=== PATIENT | male | born 1990 | race African-American/Black ===

== ENCOUNTER 2019-12-20 12:23 | Inpatient (IN) | payer MEDICAID ==
[~2019-12-20] VITALS: Ht 185.4 cm; Wt 68.5 kg
[~2019-12-20 12:23] MED LIST: INSLIS SUBCUT; LANTUSUD SUBCUT; NIFE-32 PO
[2019-12-20] MEDS ORDERED: SODIUM CHLORIDE 0.9% 1,000 ML IV ONE (12:38)
[2019-12-20] MEDS ORDERED: MORPHINE SULFATE 4 MG/ML CPJ (NOT FOR IM USE) IV STA (12:38)
[2019-12-20] MEDS ORDERED: ONDANSETRON HCL 4MG/2ML INJ IV STA (12:38)
[2019-12-20] MEDS ORDERED: PANTOPRAZOLE SODIUM 40 MG/VIAL IV STA (12:38)
[2019-12-20] MEDS ORDERED: INSULIN REGULAR (DRIP) 100 UNITS in SODIUM CHLORIDE 0.9% 99 ML IV ONE (12:45)
[2019-12-20] MEDS ORDERED: INSULIN REGULAR (DRIP) 100 UNITS in SODIUM CHLORIDE 0.9% 99 ML IV NR (13:30)
[2019-12-20 13:33] LABS: BASOPHILS % 0.9 % (0.0-2.0); EOSINOPHILS % 0.6 % (0.0-5.0); HEMATOCRIT. 46.9 % (42.0-52.0); HEMOGLOBIN. 15.9 g/dL (14.0-18.0); LYMPHOCYTES % 13.4 % (20.0-50.0); MEAN CORPUSCULAR HEMOGLOBIN 29.6 pg (28.0-32.0); MEAN CORPUSCULAR VOLUME 87.2 fL (80.0-94.0); MEAN PLATELET VOLUME 10.1 fl (7.4-10.4); MONOCYTES % 3.8 % (2.0-8.0); NEUTROPHILS % 81.3 % (40.0-76.0); PLATELET 329 x1000/uL (130-400); RED BLOOD CELL COUNT 5.38 mill/uL (4.7-6.1); RED CELL DISTRIBUTION WIDTH 12.6 % (11.6-14.6)
[2019-12-20 13:44] LABS: BG BASE EXCESS 0.5 mmol/L (-2.0-2.0); BG DEOXYHEMOGLOBIN 1.3 % (0.0-5.0); BG FRACTION INSPIRED OXYGEN 21; BG HCO3 ACT 21.3 mmol/L (22.0-26.0); BG METHEMOGLOBIN 0.3 % (0.0-1.5); BG OXYGEN SATURATION 98.7 % (92.0-98.5); BG OXYHEMOGLOBIN 97.4 % (94.0-97.0); BG PCO2 25.6 mmHg (35.0-45.0); BG PH 7.538 (7.350-7.450); BG PO2 127.1 mmHg (75.0-100.0); BG SAMPLE SITE RIGHT RADIAL; BG TOTAL HEMOGLOBIN 15.8 g/dL (12.0-18.0); BG VENT MODE ROOM AIR
[2019-12-20 13:45] LABS: PROTHROMBIN TIME 10.4 sec (9.6-11.0)
[2019-12-20 14:27] LABS: CHLORIDE 97 mEq/L (98-107)
[2019-12-20] MEDS ORDERED: INSULIN REGULAR (HUMULIN R) 300UNITS/3ML IV ONE (14:45)
[2019-12-20 14:56] LABS: BETA HYDROXYBUTYRATE 1.9 mMol/L (0.0-0.3)
[2019-12-20 15:17] LABS: ETHANOL BLOOD < 10 mg/dL
[2019-12-20] MEDS: AMLODIPINE 5MG TABLET PO SCH (17:15)
[2019-12-20] MEDS ORDERED: DEXT 5%/0.9% NACL 1,000 ML IV ONE (18:30)
[2019-12-20 20:00] VITALS: BP 162/102
[2019-12-20] MEDS ORDERED: IPRATROPIUM/ALBUTEROL 0.5-3(2.5)MG/3ML NEB HHN PRN (20:30)
[2019-12-20] MEDS ORDERED: ACETAMINOPHEN 325MG TABLET PO PRN (20:30)
[2019-12-20] MEDS ORDERED: DOCUSATE SODIUM 100MG CAPSULE PO PRN (20:30)
[2019-12-20] MEDS ORDERED: LORAZEPAM 0.5MG TABLET PO PRN (20:30)
[2019-12-20] MEDS ORDERED: HYDROCODONE/ACETAMINOPHEN 5/325MG TABLET PO PRN (20:30)
[2019-12-20 21:00] VITALS: BP 152/102
[2019-12-20] MEDS ORDERED: DEXTROSE 50% WATER 50ML SYRINGE IV PRN (21:00)
[2019-12-20] MEDS: INSULIN LISPRO 100 UNITS/ML SUBCUT SCH (21:00)
[2019-12-20] MEDS ORDERED: INSULIN LISPRO 100 UNITS/ML SUBCUT SCH (21:00)
[2019-12-20] MEDS: BLOOD SUGAR DIAGNOSTIC STRIP TEST SCH (21:20)
[2019-12-20] MEDS: CLONIDINE 0.1MG TABLET PO PRN (21:27)
[2019-12-20] MEDS: ONDANSETRON HCL 4MG/2ML INJ IV PRN (21:27)
[2019-12-20] MEDS: SODIUM CHLORIDE 0.9% 1,000 ML IV SCH (21:47)
[2019-12-21] VITALS: BP 151/108
[2019-12-21] MEDS: INSULIN GLARGINE UD 100 UNITS/ML SYR SUBCUT SCH ×3 (01:53→22:00)
[2019-12-21] MEDS: ONDANSETRON HCL 4MG/2ML INJ IV PRN ×3 (03:31→16:23)
[2019-12-21 04:00] VITALS: BP 185/122
[2019-12-21] MEDS: CLONIDINE 0.1MG TABLET PO PRN (04:57)
[2019-12-21 05:55] VITALS: BP 116/72
[2019-12-21] MEDS: INSULIN LISPRO 100 UNITS/ML SUBCUT SCH ×4 (06:25→21:00)
[2019-12-21] MEDS: SODIUM CHLORIDE 0.9% 1,000 ML IV SCH (06:26)
[2019-12-21] MEDS: BLOOD SUGAR DIAGNOSTIC STRIP TEST SCH ×4 (06:26→21:00)
[2019-12-21 08:00] VITALS: BP 125/73
[2019-12-21 09:06] LABS: BASOPHILS % 0.4 % (0.0-2.0); EOSINOPHILS % 0.1 % (0.0-5.0); HEMATOCRIT. 41.2 % (42.0-52.0); HEMOGLOBIN. 14.3 g/dL (14.0-18.0); LYMPHOCYTES % 11.1 % (20.0-50.0); MEAN CORPUSCULAR HEMOGLOBIN 30.1 pg (28.0-32.0); MEAN CORPUSCULAR VOLUME 86.8 fL (80.0-94.0); MEAN PLATELET VOLUME 9.1 fl (7.4-10.4); MONOCYTES % 7.1 % (2.0-8.0); NEUTROPHILS % 81.3 % (40.0-76.0); PLATELET 300 x1000/uL (130-400); RED BLOOD CELL COUNT 4.75 mill/uL (4.7-6.1); RED CELL DISTRIBUTION WIDTH 12.8 % (11.6-14.6)
[2019-12-21] MEDS: AMLODIPINE 5MG TABLET PO SCH (09:20)
[2019-12-21] MEDS ORDERED: LABETALOL 5MG/ML SYR 20 MG/4 ML SYRINGE IV PRN (09:30)
[2019-12-21] MEDS ORDERED: SODIUM CHLORIDE 0.9% 1,000 ML IV SCH (09:45)
[2019-12-21 12:00] VITALS: BP 160/90
[2019-12-21] MEDS: METOCLOPRAMIDE HCL 10MG/2ML VIAL IV SCH ×2 (12:00→18:10)
[2019-12-21] MEDS: PANTOPRAZOLE SODIUM 40 MG/VIAL IV SCH (12:00)
[2019-12-21] MEDS: LACTATED RINGERS 1,000 ML IV SCH ×2 (14:14→18:10)
[2019-12-21] MEDS: MORPHINE SULFATE 2 MG/ML CPJ (NOT FOR IM USE) IV PRN (16:25)
[2019-12-21 20:25] VITALS: BP 150/96
[2019-12-22] MEDS: METOCLOPRAMIDE HCL 10MG/2ML VIAL IV SCH ×4 (00:58→18:00)
[2019-12-22] MEDS: MORPHINE SULFATE 2 MG/ML CPJ (NOT FOR IM USE) IV PRN ×3 (01:09→18:22)
[2019-12-22] MEDS: LACTATED RINGERS 1,000 ML IV SCH ×3 (01:10→22:06)
[2019-12-22] MEDS: INSULIN LISPRO 100 UNITS/ML SUBCUT SCH ×4 (07:27→23:00)
[2019-12-22] MEDS: BLOOD SUGAR DIAGNOSTIC STRIP TEST SCH ×4 (07:28→21:00)
[2019-12-22 08:00] VITALS: BP 184/120
[2019-12-22] MEDS: PANTOPRAZOLE SODIUM 40 MG/VIAL IV SCH (08:35)
[2019-12-22] MEDS: NIFEDIPINE XL 60MG TAB PO SCH (08:35)
[2019-12-22] MEDS: ONDANSETRON HCL 4MG/2ML INJ IV PRN ×2 (08:35→17:11)
[2019-12-22 09:15] VITALS: BP 150/97
[2019-12-22] MEDS: INSULIN GLARGINE UD 100 UNITS/ML SYR SUBCUT SCH ×2 (10:00→23:34)
[2019-12-22 20:00] VITALS: BP 157/113
[2019-12-22] MEDS: CLONIDINE 0.1MG TABLET PO PRN (20:50)
[2019-12-23] MEDS: LACTATED RINGERS 1,000 ML IV SCH ×2 (01:45→17:45)
[2019-12-23] MEDS: METOCLOPRAMIDE HCL 10MG/2ML VIAL IV SCH ×5 (06:06→23:52)
[2019-12-23] MEDS: BLOOD SUGAR DIAGNOSTIC STRIP TEST SCH ×4 (07:03→20:52)
[2019-12-23] MEDS: INSULIN LISPRO 100 UNITS/ML SUBCUT SCH ×4 (07:08→20:52)
[2019-12-23] MEDS: FAMOTIDINE 20MG/2ML VIAL IV SCH ×2 (09:00→20:53)
[2019-12-23] MEDS: NIFEDIPINE XL 60MG TAB PO SCH (09:00)
[2019-12-23] MEDS: INSULIN GLARGINE UD 100 UNITS/ML SYR SUBCUT SCH ×2 (10:00→23:50)
[2019-12-23] MEDS: ONDANSETRON HCL 4MG/2ML INJ IV PRN (13:30)
[2019-12-23] MEDS: MORPHINE SULFATE 2 MG/ML CPJ (NOT FOR IM USE) IV PRN ×2 (13:50→18:40)
[2019-12-23] MEDS ORDERED: HYDRALAZINE 10 MG in SODIUM CHLORIDE 0.9% 49.5 ML IV PRN (14:30)
[2019-12-23] MEDS: CLONIDINE 0.1MG TABLET PO PRN (15:55)
[2019-12-23 16:00] VITALS: BP 188/105
[2019-12-24] VITALS: BP 141/89
[2019-12-24] MEDS: LACTATED RINGERS 1,000 ML IV SCH ×2 (01:20→11:00)
[2019-12-24] MEDS: METOCLOPRAMIDE HCL 10MG/2ML VIAL IV SCH ×2 (05:58→11:14)
[2019-12-24] MEDS: BLOOD SUGAR DIAGNOSTIC STRIP TEST SCH ×2 (06:52→11:15)
[2019-12-24] MEDS: INSULIN LISPRO 100 UNITS/ML SUBCUT SCH ×2 (07:50→11:15)
[2019-12-24] MEDS: NIFEDIPINE XL 60MG TAB PO SCH (09:00)
[2019-12-24] MEDS: FAMOTIDINE 20MG/2ML VIAL IV SCH (09:00)
[2019-12-24] MEDS: INSULIN GLARGINE UD 100 UNITS/ML SYR SUBCUT SCH (10:59)
[2019-12-24] MEDS ORDERED: ONDA4TAB11 PO ×2 (13:12→16:09)
[2019-12-24] MEDS ORDERED: INSU100V3 SUBCUT (16:07)
== END 2019-12-24 14:15 | disposition home or self-care (01) | DRG 48 ==
LOC: ER 12:23 → 5WST 14:36 → EDBEDREQTM 14:42 → EDBEDREQ 14:42 → EDBEDREQSVC 14:42 → CANRESERV 19:24 → ENRESERV 19:24 → 6EST 12-22 10:16
PROVIDERS: ADMIT Internal Medicine; ATTEND Internal Medicine
DX: E10.43 Type 1 diabetes mellitus with diabetic autonomic (poly)neuropathy (principal); E10.10 Type 1 diabetes mellitus with ketoacidosis without coma; K31.84 Gastroparesis; E88.89 Other specified metabolic disorders; J45.909 Unspecified asthma, uncomplicated; N17.9 Acute kidney failure, unspecified; D72.829 Elevated white blood cell count, unspecified; E10.65 Type 1 diabetes mellitus with hyperglycemia; E86.9 Volume depletion, unspecified; Z79.4 Long term (current) use of insulin; Z79.899 Other long term (current) drug therapy; K29.20 Alcoholic gastritis without bleeding
CPT/HCPCS: 36415; 36600; 71045; 80048; 80053; 80320; 82010; 82375; 82805; 82962; 83036; 83735; 83880; 83930; 84484; 85025; 86850; 86900; 93005; 99291; C9113; J1815; J2270; J2405; J2765; J3490; J7030; J7042; J7050; J7120; G0480

== ENCOUNTER 2020-02-12 10:17 | Inpatient (IN) | payer MEDICAID ==
[~2020-02-12] VITALS: Ht 182.9 cm; Wt 65.4 kg
[~2020-02-12 10:17] MED LIST changes: +INSU100V3 SUBCUT; +ONDA4TAB11 PO
[2020-02-12] MEDS ORDERED: SODIUM CHLORIDE 0.9% 1,000 ML IV ONE ×3 (10:46)
[2020-02-12] MEDS ORDERED: ONDANSETRON HCL 4MG/2ML INJ IV STA (10:46)
[2020-02-12] MEDS ORDERED: FAMOTIDINE 20MG/2ML VIAL IV ONE (11:00)
[2020-02-12 11:26] LABS: HEMATOCRIT. 51.5 % (42.0-52.0); HEMOGLOBIN. 17.2 g/dL (14.0-18.0); MEAN CORPUSCULAR HEMOGLOBIN 29.2 pg (28.0-32.0); MEAN CORPUSCULAR VOLUME 87.4 fL (80.0-94.0); MEAN PLATELET VOLUME 10.2 fl (7.4-10.4); PLATELET 410 x1000/uL (130-400); RED BLOOD CELL COUNT 5.89 mill/uL (4.7-6.1); RED CELL DISTRIBUTION WIDTH 13.3 % (11.6-14.6)
[2020-02-12 11:42] LABS: ETHANOL BLOOD < 10 mg/dL; PROTHROMBIN TIME 10.7 sec (9.6-11.0)
[2020-02-12 12:00] LABS: BETA HYDROXYBUTYRATE 7.9 mMol/L (0.0-0.3)
[2020-02-12 12:01] LABS: AMYLASE 157 IU/L (25-115); CHLORIDE 90 mEq/L (98-107)
[2020-02-12 12:04] LABS: PLATELET ESTIMATE INCREASED
[2020-02-12] MEDS ORDERED: SODIUM CHLORIDE 0.9% 1,000 ML IV SCH (12:08)
[2020-02-12] MEDS ORDERED: INSULIN REGULAR (DRIP) 100 UNITS in SODIUM CHLORIDE 0.9% 100 ML IV ONE (12:08)
[2020-02-12 12:36] LABS: CLARITY URINE CLEAR (CLEAR); COLOR URINE YELLOW (YELLOW); KETONES URINE 3+ (NEGATIVE); LEUKOCYTE ESTERASE URINE NEGATIVE (NEGATIVE); NITRITE URINE NEGATIVE (NEGATIVE); OCCULT BLOOD URINE NEGATIVE (NEGATIVE); PROTEIN URINE 2+ (NEGATIVE); SPECIFIC GRAVITY URINE 1.027 (1.005-1.030); UROBILINOGEN URINE 0.2 E.U./dL (0.2-1.0)
[2020-02-12 13:08] LABS: BG CARBOXYHEMOGLOBIN 0.5 % (0.5-1.5); BG DEOXYHEMOGLOBIN 2.4 % (0.0-5.0); BG FRACTION INSPIRED OXYGEN 21; BG HCO3 ACT 13.6 mmol/L (22.0-26.0); BG METHEMOGLOBIN 0.4 % (0.0-1.5); BG OXYGEN SATURATION 97.6 % (92.0-98.5); BG OXYHEMOGLOBIN 96.7 % (94.0-97.0); BG PCO2 28.1 mmHg (35.0-45.0); BG PH 7.304 (7.350-7.450); BG PO2 105.2 mmHg (75.0-100.0); BG SAMPLE SITE RIGHT RADIAL; BG TOTAL HEMOGLOBIN 15.7 g/dL (12.0-18.0); BG VENT MODE ROOM AIR
[2020-02-12 13:25] LABS: *AMPHETAMINES SCREEN URINE NEGATIVE (NEGATIVE)
[2020-02-12 13:26] LABS: *BARBITURATES SCREEN URINE NEGATIVE (NEGATIVE); *BENZODIAZEPINES SCREEN URINE NEGATIVE (NEGATIVE); *COCAINE SCREEN URINE NEGATIVE (NEGATIVE)
[2020-02-12 13:27] LABS: CANNABINOID URINE SCREEN NEGATIVE (NEGATIVE); METHADONE URINE SCREEN NEGATIVE (NEGATIVE); OPIATES URINE SCREEN NEGATIVE (NEGATIVE); PHENCYCLIDINE URINE SCREEN NEGATIVE (NEGATIVE)
[2020-02-12] MEDS: ENOXAPARIN 40MG/0.4ML SYR SUBCUT SCH (15:30)
[2020-02-12] MEDS: SODIUM CHLORIDE 0.9% 1,000 ML IV SCH ×2 (15:53→19:59)
[2020-02-12] MEDS: CLONIDINE 0.1MG TABLET PO PRN (20:08)
[2020-02-12 20:25] LABS: CHLORIDE 109 mEq/L (98-107)
[2020-02-12 20:30] LABS: PHOSPHORUS 3.6 mg/dL (2.5-4.9)
[2020-02-13] VITALS (12 sets, daily range): BP systolic 140–190; BP diastolic 89–122
[2020-02-13] MEDS ORDERED: DEXTROSE 50% WATER 50ML SYRINGE IV PRN (00:15)
[2020-02-13] MEDS: CLONIDINE 0.1MG TABLET PO PRN ×3 (03:09→20:41)
[2020-02-13] MEDS: INSULIN GLARGINE UD 100 UNITS/ML SYR SUBCUT SCH ×2 (03:10→23:55)
[2020-02-13] MEDS: DIPHENHYDRAMINE 50MG/ML VIAL IV PRN ×2 (03:10→11:59)
[2020-02-13] MEDS: BLOOD SUGAR DIAGNOSTIC STRIP TEST SCH ×6 (03:52→23:59)
[2020-02-13] MEDS: INSULIN LISPRO (HIGH DOSE) 100 UNITS/ML SUBCUT SCH ×6 (03:54→23:59)
[2020-02-13] MEDS: INSULIN LISPRO 100 UNITS/ML SUBCUT SCH ×3 (07:30→17:30)
[2020-02-13] MEDS: ACETAMINOPHEN 325MG TABLET PO PRN (08:28)
[2020-02-13] MEDS: ONDANSETRON HCL 4MG/2ML INJ IV PRN ×2 (08:28→20:41)
[2020-02-13] MEDS: DEXT 5%/0.9% NACL KCL 20MEQ/L 1,000 ML IV SCH ×2 (10:25→13:00)
[2020-02-13] MEDS: MORPHINE SULFATE 2 MG/ML CPJ (NOT FOR IM USE) IV PRN ×2 (13:20→20:58)
[2020-02-13] MEDS: ENOXAPARIN 40MG/0.4ML SYR SUBCUT SCH (15:30)
[2020-02-13 15:59] LABS: BASOPHILS % 0.3 % (0.0-2.0); EOSINOPHILS % 0.1 % (0.0-5.0); HEMATOCRIT. 39.9 % (42.0-52.0); HEMOGLOBIN. 13.4 g/dL (14.0-18.0); LYMPHOCYTES % 12.8 % (20.0-50.0); MEAN CORPUSCULAR HEMOGLOBIN 29.3 pg (28.0-32.0); MEAN CORPUSCULAR VOLUME 87.6 fL (80.0-94.0); MEAN PLATELET VOLUME 8.9 fl (7.4-10.4); NEUTROPHILS % 80.8 % (40.0-76.0); PLATELET 300 x1000/uL (130-400); RED BLOOD CELL COUNT 4.55 mill/uL (4.7-6.1); RED CELL DISTRIBUTION WIDTH 13.3 % (11.6-14.6)
[2020-02-13 16:04] LABS: CHLORIDE 113 mEq/L (98-107)
[2020-02-13 16:10] LABS: PHOSPHORUS 2.2 mg/dL (2.5-4.9)
[2020-02-13] MEDS: NIFEDIPINE XL 60MG TAB PO SCH (18:23)
[2020-02-13] MEDS ORDERED: LABETALOL 5MG/ML SYR 20 MG/4 ML SYRINGE IV PRN (18:30)
[2020-02-13] MEDS: SODIUM CHLORIDE 0.9% 1,000 ML IV SCH (18:43)
[2020-02-14] VITALS (12 sets, daily range): BP systolic 134–180; BP diastolic 71–108
[2020-02-14] MEDS: SODIUM CHLORIDE 0.9% 1,000 ML IV SCH ×2 (03:07→13:24)
[2020-02-14] MEDS: INSULIN LISPRO (HIGH DOSE) 100 UNITS/ML SUBCUT SCH ×5 (03:09→20:28)
[2020-02-14] MEDS: BLOOD SUGAR DIAGNOSTIC STRIP TEST SCH ×5 (03:09→20:22)
[2020-02-14] MEDS: MORPHINE SULFATE 2 MG/ML CPJ (NOT FOR IM USE) IV PRN ×3 (03:14→13:25)
[2020-02-14] MEDS: ONDANSETRON HCL 4MG/2ML INJ IV PRN ×2 (03:38→13:24)
[2020-02-14] MEDS: LABETALOL 5MG/ML SYR 20 MG/4 ML SYRINGE IV PRN ×2 (03:39→13:26)
[2020-02-14] MEDS: DIPHENHYDRAMINE 50MG/ML VIAL IV PRN (05:59)
[2020-02-14] MEDS: CLONIDINE 0.1MG TABLET PO PRN ×2 (06:06→18:48)
[2020-02-14] MEDS: INSULIN LISPRO 100 UNITS/ML SUBCUT SCH ×3 (08:02→17:30)
[2020-02-14] MEDS: NIFEDIPINE XL 60MG TAB PO SCH (08:05)
[2020-02-14 14:55] LABS: BASOPHILS % 0.5 % (0.0-2.0); EOSINOPHILS % 0.6 % (0.0-5.0); HEMATOCRIT. 37.9 % (42.0-52.0); HEMOGLOBIN. 12.9 g/dL (14.0-18.0); LYMPHOCYTES % 21.7 % (20.0-50.0); MEAN CORPUSCULAR HEMOGLOBIN 29.6 pg (28.0-32.0); MEAN CORPUSCULAR VOLUME 86.6 fL (80.0-94.0); MEAN PLATELET VOLUME 8.6 fl (7.4-10.4); NEUTROPHILS % 71.2 % (40.0-76.0); PLATELET 280 x1000/uL (130-400); RED BLOOD CELL COUNT 4.38 mill/uL (4.7-6.1); RED CELL DISTRIBUTION WIDTH 13.1 % (11.6-14.6)
[2020-02-14 14:59] LABS: CHLORIDE 111 mEq/L (98-107)
[2020-02-14] MEDS: ENOXAPARIN 40MG/0.4ML SYR SUBCUT SCH (15:30)
[2020-02-14] MEDS ORDERED: POTASSIUM CHLORIDE INJ 40 MEQ in DEXT 5% WATER 250 ML IV ONE (17:00)
[2020-02-14] MEDS: METOCLOPRAMIDE HCL 10MG/2ML VIAL IV SCH (18:49)
[2020-02-14] MEDS: PANTOPRAZOLE SODIUM 40 MG/VIAL IV SCH (21:50)
[2020-02-14] MEDS: INSULIN GLARGINE UD 100 UNITS/ML SYR SUBCUT SCH (21:53)
[2020-02-15] VITALS (12 sets, daily range): BP systolic 127–187; BP diastolic 68–114
[2020-02-15] MEDS: BLOOD SUGAR DIAGNOSTIC STRIP TEST SCH ×6 (04:52→20:18)
[2020-02-15] MEDS: CLONIDINE 0.1MG TABLET PO PRN ×2 (04:53→22:54)
[2020-02-15] MEDS: ACETAMINOPHEN 325MG TABLET PO PRN (04:53)
[2020-02-15] MEDS: INSULIN LISPRO (HIGH DOSE) 100 UNITS/ML SUBCUT SCH ×6 (05:05→20:00)
[2020-02-15] MEDS: MORPHINE SULFATE 2 MG/ML CPJ (NOT FOR IM USE) IV PRN ×3 (05:06→21:10)
[2020-02-15 06:38] LABS: CHLORIDE 104 mEq/L (98-107)
[2020-02-15 06:54] LABS: BASOPHILS % 0.5 % (0.0-2.0); EOSINOPHILS % 0.7 % (0.0-5.0); HEMATOCRIT. 38.1 % (42.0-52.0); LYMPHOCYTES % 23.7 % (20.0-50.0); MEAN CORPUSCULAR HEMOGLOBIN 29.5 pg (28.0-32.0); MEAN CORPUSCULAR VOLUME 86.6 fL (80.0-94.0); MEAN PLATELET VOLUME 9.1 fl (7.4-10.4); MONOCYTES % 4.7 % (2.0-8.0); NEUTROPHILS % 70.4 % (40.0-76.0); PLATELET 270 x1000/uL (130-400); RED CELL DISTRIBUTION WIDTH 12.7 % (11.6-14.6)
[2020-02-15] MEDS: METOCLOPRAMIDE HCL 10MG/2ML VIAL IV SCH ×4 (06:55→17:04)
[2020-02-15] MEDS: INSULIN LISPRO 100 UNITS/ML SUBCUT SCH ×3 (08:38→17:05)
[2020-02-15] MEDS: PANTOPRAZOLE SODIUM 40 MG/VIAL IV SCH ×2 (08:40→21:09)
[2020-02-15] MEDS: NIFEDIPINE XL 60MG TAB PO SCH (08:40)
[2020-02-15] MEDS: ENOXAPARIN 40MG/0.4ML SYR SUBCUT SCH (08:40)
[2020-02-15] MEDS: ONDANSETRON HCL 4MG/2ML INJ IV PRN (20:13)
[2020-02-15] MEDS: INSULIN GLARGINE UD 100 UNITS/ML SYR SUBCUT SCH (21:10)
[2020-02-16] VITALS (9 sets, daily range): BP systolic 112–142; BP diastolic 60–87
[2020-02-16] MEDS: BLOOD SUGAR DIAGNOSTIC STRIP TEST SCH ×4 (04:00→12:31)
[2020-02-16] MEDS: MORPHINE SULFATE 2 MG/ML CPJ (NOT FOR IM USE) IV PRN (05:35)
[2020-02-16] MEDS: INSULIN LISPRO (HIGH DOSE) 100 UNITS/ML SUBCUT SCH ×4 (05:37→12:34)
[2020-02-16] MEDS: METOCLOPRAMIDE HCL 10MG/2ML VIAL IV SCH ×3 (05:37→12:34)
[2020-02-16] MEDS: CLONIDINE 0.1MG TABLET PO PRN (06:26)
[2020-02-16] MEDS: PANTOPRAZOLE SODIUM 40 MG/VIAL IV SCH (09:32)
[2020-02-16] MEDS: NIFEDIPINE XL 60MG TAB PO SCH (09:34)
[2020-02-16] MEDS: INSULIN LISPRO 100 UNITS/ML SUBCUT SCH ×2 (09:35→12:35)
[2020-02-16] MEDS: ENOXAPARIN 40MG/0.4ML SYR SUBCUT SCH (09:36)
[2020-02-16 10:44] LABS: BASOPHILS % 0.8 % (0.0-2.0); EOSINOPHILS % 3.4 % (0.0-5.0); HEMATOCRIT. 42.4 % (42.0-52.0); HEMOGLOBIN. 14.5 g/dL (14.0-18.0); LYMPHOCYTES % 36.9 % (20.0-50.0); MEAN CORPUSCULAR HEMOGLOBIN 29.1 pg (28.0-32.0); MEAN CORPUSCULAR VOLUME 85.1 fL (80.0-94.0); MEAN PLATELET VOLUME 8.2 fl (7.4-10.4); MONOCYTES % 6.8 % (2.0-8.0); NEUTROPHILS % 52.1 % (40.0-76.0); PLATELET 291 x1000/uL (130-400); RED BLOOD CELL COUNT 4.99 mill/uL (4.7-6.1); RED CELL DISTRIBUTION WIDTH 12.7 % (11.6-14.6)
[2020-02-16 10:50] LABS: CHLORIDE 100 mEq/L (98-107)
[2020-02-16] MEDS ORDERED: METO-293 MT (11:07)
[2020-02-16] MEDS ORDERED: INSLIS SUBCUT (11:07)
[2020-02-16] MEDS ORDERED: LANTUSUD SUBCUT (11:07)
[2020-02-16] MEDS ORDERED: [UNRECOGNIZED DRUG - CODE] HHN (12:05)
[2020-02-16] MEDS ORDERED: FAMOTIDINE 20MG/2ML VIAL IV SCH (21:00)
[2020-02-16] MEDS ORDERED: INSULIN GLARGINE UD 100 UNITS/ML SYR SUBCUT SCH (22:00)
== END 2020-02-16 15:00 | disposition home or self-care (01) | DRG 242 ==
LOC: ER 10:17 → MICUSO 13:06 → EDBEDREQ 13:08 → 5EST 23:58
PROVIDERS: ADMIT Internal Medicine; ATTEND Internal Medicine
DX: K22.6 Gastro-esophageal laceration-hemorrhage syndrome (principal); E11.10 Type 2 diabetes mellitus with ketoacidosis without coma; E11.649 Type 2 diabetes mellitus with hypoglycemia without coma; E11.43 Type 2 diabetes mellitus with diabetic autonomic (poly)neuropathy; K29.70 Gastritis, unspecified, without bleeding; K31.84 Gastroparesis; D72.829 Elevated white blood cell count, unspecified; E87.1 Hypo-osmolality and hyponatremia; I10 Essential (primary) hypertension; F17.210 Nicotine dependence, cigarettes, uncomplicated; J45.909 Unspecified asthma, uncomplicated; N17.9 Acute kidney failure, unspecified; T38.3X6A Underdosing of insulin and oral hypoglycemic [antidiabetic] drugs, initial encounter; Z79.4 Long term (current) use of insulin; Y92.89 Other specified places as the place of occurrence of the external cause; E86.0 Dehydration; R65.10 Systemic inflammatory response syndrome (SIRS) of non-infectious origin without acute organ dysfunction; N17.2 Acute kidney failure with medullary necrosis
CPT/HCPCS: 36415; 36600; 71045; 74018; 80048; 80053; 80305; 80320; 81003; 82010; 82150; 82375; 82805; 82962; 83735; 84100; 84145; 84484; 85025; 86850; 86900; 93005; 93970; 96374; 99285; C9113; J1200; J1650; J1815; J2270; J2405; J2765; J3480; J3490; J7030; J7050; J7060; G0480

== ENCOUNTER 2020-12-10 18:22 | Emergency (ER) | payer MEDICAID, OTHER ==
[~2020-12-10] VITALS: Ht 177.8 cm; Wt 80.0 kg
[~2020-12-10 18:22] MED LIST changes: +AMLO10TA80 MT; -INSU100V3 SUBCUT; +METO-293 MT; -NIFE-32 PO
[2020-12-10] MEDS ORDERED: SODIUM CHLORIDE 0.9% 1,000 ML IV ONE ×2 (19:00→23:45)
[2020-12-10] MEDS ORDERED: ONDANSETRON HCL 4MG/2ML INJ IV ONE ×2 (19:00→23:45)
[2020-12-10] MEDS ORDERED: MORPHINE SULFATE 4 MG/ML CPJ (NOT FOR IM USE) IV ONE ×2 (19:00→23:45)
[2020-12-10] MEDS ORDERED: FAMOTIDINE 20MG/2ML VIAL IV ONE (19:00)
[2020-12-10 21:24] LABS: BASOPHILS % 1.2 % (0.0-2.0); EOSINOPHILS % 1.1 % (0.0-5.0); HEMATOCRIT. 42.4 % (42.0-52.0); HEMOGLOBIN. 14.5 g/dL (14.0-18.0); LYMPHOCYTES % 16.5 % (20.0-50.0); MEAN CORPUSCULAR HEMOGLOBIN 29.8 pg (28.0-32.0); MEAN CORPUSCULAR VOLUME 86.8 fL (80.0-94.0); MEAN PLATELET VOLUME 8.7 fl (7.4-10.4); MONOCYTES % 4.5 % (2.0-8.0); NEUTROPHILS % 76.7 % (40.0-76.0); PLATELET 341 x1000/uL (130-400); RED BLOOD CELL COUNT 4.88 mill/uL (4.7-6.1); RED CELL DISTRIBUTION WIDTH 13.1 % (11.6-14.6)
[2020-12-10] MEDS ORDERED: INSULIN REGULAR (HUMULIN R) 300UNITS/3ML VIAL IV ONE (23:45)
[2020-12-11] MEDS ORDERED: ONDA4TAB11 PO (01:49)
[2020-12-11] MEDS ORDERED: LANTUSUD SUBCUT (01:49)
[2020-12-11] MEDS ORDERED: FAMO-123 PO (01:49)
[2020-12-11] MEDS ORDERED: INSLIS SUBCUT (01:49)
[2020-12-11] MEDS ORDERED: TRAM-529 PO (01:49)
[2020-12-11] MEDS ORDERED: AMLO10TA80 MT (01:49)
[2020-12-11] MEDS ORDERED: AMLO10TA80 PO (01:51)
[2020-12-11 02:36] VITALS: BP 155/95
== END 2020-12-11 02:53 | disposition home or self-care (01) ==
LOC: ER 18:30
DX: E11.65 Type 2 diabetes mellitus with hyperglycemia (principal); I16.0 Hypertensive urgency; E86.0 Dehydration; J45.909 Unspecified asthma, uncomplicated; Z91.14 Patient's other noncompliance with medication regimen; Z79.4 Long term (current) use of insulin
CPT/HCPCS: 36415; 80048; 82962; 83690; 85025; 93005; 96361; 96374; 96375; 96376; 99291; J1815; J2270; J2405; J3490; J7030

== ENCOUNTER 2021-01-27 16:47 | Inpatient (IN) | payer MEDICAID, OTHER ==
[~2021-01-27] VITALS: Ht 182.9 cm; Wt 75.8 kg
[~2021-01-27 16:47] MED LIST changes: +AMLO10TA80 PO; +FAMO-123 PO; +TRAM-529 PO
[2021-01-27] MEDS ORDERED: ONDANSETRON HCL 4MG/2ML INJ IV STA (17:54)
[2021-01-27] MEDS ORDERED: PANTOPRAZOLE SODIUM 40 MG/VIAL IV STA (17:54)
[2021-01-27] MEDS ORDERED: MORPHINE SULFATE 4 MG/ML CPJ (NOT FOR IM USE) IV STA (17:54)
[2021-01-27 18:28] LABS: BASOPHILS % 0.3 % (0.0-2.0); EOSINOPHILS % 0.2 % (0.0-5.0); HEMATOCRIT. 41.5 % (42.0-52.0); LYMPHOCYTES % 10.5 % (20.0-50.0); MEAN CORPUSCULAR HEMOGLOBIN 29.2 pg (28.0-32.0); MEAN CORPUSCULAR VOLUME 86.5 fL (80.0-94.0); MEAN PLATELET VOLUME 9.4 fl (7.4-10.4); MONOCYTES % 3.1 % (2.0-8.0); NEUTROPHILS % 85.9 % (40.0-76.0); PLATELET 297 x1000/uL (130-400); RED BLOOD CELL COUNT 4.79 mill/uL (4.7-6.1); RED CELL DISTRIBUTION WIDTH 12.7 % (11.6-14.6)
[2021-01-27 18:33] LABS: CHLORIDE 100 mEq/L (98-107)
[2021-01-27 18:35] LABS: PROTHROMBIN TIME 10.6 sec (9.6-11.0)
[2021-01-27 18:38] LABS: ETHANOL BLOOD < 10 mg/dL
[2021-01-27 19:07] LABS: CLARITY URINE CLEAR (CLEAR); COLOR URINE YELLOW (YELLOW); KETONES URINE NEGATIVE (NEGATIVE); LEUKOCYTE ESTERASE URINE NEGATIVE (NEGATIVE); NITRITE URINE NEGATIVE (NEGATIVE); OCCULT BLOOD URINE NEGATIVE (NEGATIVE); PH URINE >=9.0 (4.5-8.0); PROTEIN URINE 3+ (NEGATIVE); SPECIFIC GRAVITY URINE 1.026 (1.005-1.030); UROBILINOGEN URINE 0.2 E.U./dL (0.2-1.0)
[2021-01-27 19:30] LABS: CANNABINOID URINE SCREEN PRESUMTIVE POSITIVE (NEGATIVE); OPIATES URINE SCREEN NEGATIVE (NEGATIVE)
[2021-01-27 19:32] LABS: *AMPHETAMINES SCREEN URINE NEGATIVE (NEGATIVE); *BARBITURATES SCREEN URINE NEGATIVE (NEGATIVE); *BENZODIAZEPINES SCREEN URINE NEGATIVE (NEGATIVE); *COCAINE SCREEN URINE NEGATIVE (NEGATIVE); METHADONE URINE SCREEN NEGATIVE (NEGATIVE); PHENCYCLIDINE URINE SCREEN NEGATIVE (NEGATIVE)
[2021-01-27] MEDS ORDERED: IOHEXOL-300 100 ML BOTTLE ONE (20:16)
[2021-01-28] VITALS (13 sets, daily range): BP systolic 124–198; BP diastolic 80–120
[2021-01-28] MEDS ORDERED: INSULIN REGULAR (HUMULIN R) 300UNITS/3ML VIAL SUBCUT ONE (02:15)
[2021-01-28] MEDS ORDERED: DEXTROSE 50% WATER 50ML SYRINGE IV PRN (03:00)
[2021-01-28] MEDS ORDERED: HYDROCODONE/ACETAMINOPHEN 10/325MG TABLET PO PRN (03:00)
[2021-01-28] MEDS ORDERED: CLONIDINE 0.1MG TABLET PO PRN (03:00)
[2021-01-28] MEDS: ONDANSETRON HCL 4MG/2ML INJ IV PRN ×4 (03:19→21:11)
[2021-01-28] MEDS: HYDRALAZINE 20MG/ML VIAL IV PRN ×2 (03:20→19:46)
[2021-01-28] MEDS: MORPHINE SULFATE 2 MG/ML CPJ (NOT FOR IM USE) IV PRN ×5 (03:21→21:12)
[2021-01-28] MEDS ORDERED: LABETALOL 5MG/ML SYR 20 MG/4 ML SYRINGE IV NR (05:15)
[2021-01-28] MEDS: BLOOD SUGAR DIAGNOSTIC STRIP TEST SCH ×4 (07:42→19:46)
[2021-01-28] MEDS: INSULIN LISPRO 100 UNITS/ML SUBCUT SCH ×4 (07:53→21:13)
[2021-01-28] MEDS: NIFEDIPINE XL 60MG TAB PO SCH (08:46)
[2021-01-28] MEDS ORDERED: INSULIN LISPRO 100 UNITS/ML SUBCUT NR (09:00)
[2021-01-28] MEDS ORDERED: SODIUM CHLORIDE 0.9% 500 ML IV ONE ×2 (11:45→12:45)
[2021-01-28] MEDS: SODIUM CHLORIDE 0.9% 1,000 ML IV SCH (12:16)
[2021-01-28 19:41] LABS: BASOPHILS % 0.3 % (0.0-2.0); EOSINOPHILS % 0.1 % (0.0-5.0); HEMATOCRIT. 44.9 % (42.0-52.0); HEMOGLOBIN. 15.1 g/dL (14.0-18.0); LYMPHOCYTES % 8.5 % (20.0-50.0); MEAN CORPUSCULAR HEMOGLOBIN 29.6 pg (28.0-32.0); MEAN CORPUSCULAR VOLUME 87.9 fL (80.0-94.0); MEAN PLATELET VOLUME 9.6 fl (7.4-10.4); MONOCYTES % 6.4 % (2.0-8.0); NEUTROPHILS % 84.7 % (40.0-76.0); PLATELET 325 x1000/uL (130-400); RED BLOOD CELL COUNT 5.11 mill/uL (4.7-6.1); RED CELL DISTRIBUTION WIDTH 13.3 % (11.6-14.6)
[2021-01-28] MEDS ORDERED: NIFEDIPINE XL 60MG TAB PO SCH (23:00)
[2021-01-29] VITALS (20 sets, daily range): BP systolic 111–187; BP diastolic 73–133
[2021-01-29] MEDS: SODIUM CHLORIDE 0.9% 1,000 ML IV SCH ×2 (02:22→14:04)
[2021-01-29] MEDS: ONDANSETRON HCL 4MG/2ML INJ IV PRN ×3 (02:24→21:16)
[2021-01-29] MEDS: DILTIAZEM HCL 30MG TABLET PO PRN ×2 (02:26→11:17)
[2021-01-29] MEDS: INSULIN LISPRO 100 UNITS/ML SUBCUT SCH ×4 (05:51→21:21)
[2021-01-29] MEDS: BLOOD SUGAR DIAGNOSTIC STRIP TEST SCH ×4 (05:52→21:00)
[2021-01-29] MEDS: HYDRALAZINE 20MG/ML VIAL IV PRN ×2 (05:52→17:52)
[2021-01-29] MEDS: NIFEDIPINE XL 60MG TAB PO SCH ×3 (08:10→11:16)
[2021-01-29] MEDS ORDERED: NALOXONE HCL 0.4MG/ML VIAL IV PRN (12:30)
[2021-01-29] MEDS ORDERED: INSULIN GLARGINE UD 100 UNITS/ML SYR SUBCUT NR (13:00)
[2021-01-29] MEDS: MORPHINE SULFATE 2 MG/ML CPJ (NOT FOR IM USE) IV PRN (19:34)
[2021-01-30] VITALS (17 sets, daily range): BP systolic 109–193; BP diastolic 54–139
[2021-01-30] MEDS: SODIUM CHLORIDE 0.9% 1,000 ML IV SCH ×3 (03:44→23:24)
[2021-01-30] MEDS: BLOOD SUGAR DIAGNOSTIC STRIP TEST SCH ×4 (06:32→21:00)
[2021-01-30] MEDS: MORPHINE SULFATE 2 MG/ML CPJ (NOT FOR IM USE) IV PRN ×3 (06:51→22:08)
[2021-01-30] MEDS: INSULIN LISPRO 100 UNITS/ML SUBCUT SCH ×4 (06:58→22:15)
[2021-01-30] MEDS: NIFEDIPINE XL 60MG TAB PO SCH (12:37)
[2021-01-30] MEDS: DILTIAZEM HCL 30MG TABLET PO PRN (12:37)
[2021-01-30] MEDS: METOCLOPRAMIDE HCL 10MG/2ML VIAL IV SCH ×3 (12:37→23:24)
[2021-01-30] MEDS ORDERED: INSULIN GLARGINE UD 100 UNITS/ML SYR SUBCUT NR (13:30)
[2021-01-30] MEDS: ONDANSETRON HCL 4MG/2ML INJ IV PRN (16:47)
[2021-01-30] MEDS: INSULIN GLARGINE UD 100 UNITS/ML SYR SUBCUT SCH (22:25)
[2021-01-31] VITALS (12 sets, daily range): BP systolic 134–167; BP diastolic 77–124
[2021-01-31] MEDS: BLOOD SUGAR DIAGNOSTIC STRIP TEST SCH ×4 (06:37→21:00)
[2021-01-31] MEDS: METOCLOPRAMIDE HCL 10MG/2ML VIAL IV SCH ×4 (06:43→23:41)
[2021-01-31] MEDS: INSULIN LISPRO 100 UNITS/ML SUBCUT SCH ×4 (06:49→22:16)
[2021-01-31] MEDS: NIFEDIPINE XL 60MG TAB PO SCH (09:13)
[2021-01-31] MEDS: INSULIN GLARGINE UD 100 UNITS/ML SYR SUBCUT SCH ×2 (11:05→22:16)
[2021-01-31] MEDS: MORPHINE SULFATE 2 MG/ML CPJ (NOT FOR IM USE) IV PRN ×2 (11:05→22:54)
[2021-01-31] MEDS: SODIUM CHLORIDE 0.9% 1,000 ML IV SCH ×2 (14:40→22:17)
[2021-01-31 15:59] LABS: BASOPHILS % 0.6 % (0.0-2.0); HEMATOCRIT. 41.1 % (42.0-52.0); HEMOGLOBIN. 14.4 g/dL (14.0-18.0); LYMPHOCYTES % 26.4 % (20.0-50.0); MEAN CORPUSCULAR HEMOGLOBIN 29.8 pg (28.0-32.0); MEAN CORPUSCULAR VOLUME 85.2 fL (80.0-94.0); MEAN PLATELET VOLUME 8.2 fl (7.4-10.4); MONOCYTES % 7.7 % (2.0-8.0); NEUTROPHILS % 63.3 % (40.0-76.0); PLATELET 300 x1000/uL (130-400); RED BLOOD CELL COUNT 4.82 mill/uL (4.7-6.1); RED CELL DISTRIBUTION WIDTH 12.6 % (11.6-14.6)
[2021-01-31 16:05] LABS: CHLORIDE 105 mEq/L (98-107)
[2021-02-01] VITALS (8 sets, daily range): BP systolic 141–168; BP diastolic 81–113
[2021-02-01] MEDS ORDERED: POTASSIUM CHLORIDE 20MEQ TABLET SR PO NR
[2021-02-01] MEDS: BLOOD SUGAR DIAGNOSTIC STRIP TEST SCH ×2 (06:16→11:14)
[2021-02-01] MEDS: METOCLOPRAMIDE HCL 10MG/2ML VIAL IV SCH ×2 (06:16→12:25)
[2021-02-01] MEDS: INSULIN LISPRO 100 UNITS/ML SUBCUT SCH ×2 (06:45→12:25)
[2021-02-01] MEDS: NIFEDIPINE XL 60MG TAB PO SCH (08:33)
[2021-02-01] MEDS: SODIUM CHLORIDE 0.9% 1,000 ML IV SCH (08:54)
[2021-02-01] MEDS: INSULIN GLARGINE UD 100 UNITS/ML SYR SUBCUT SCH (10:35)
[2021-02-01] MEDS ORDERED: POTASSIUM CHLORIDE 20MEQ TABLET SR PO SCH (11:15)
[2021-02-01] MEDS ORDERED: NIFE-32 PO (12:15)
[2021-02-01] MEDS ORDERED: INSLIS SUBCUT (12:15)
[2021-02-01] MEDS ORDERED: LANTUSUD SUBCUT (12:15)
== END 2021-02-01 14:20 | disposition home or self-care (01) | DRG 48 ==
LOC: ER 16:47 → EDBEDREQ 19:12 → EDBEDREQTM 19:12 → ENRESERV 21:23 → 8WST 01-28 02:37 → 3WST 01-28 12:07
PROVIDERS: ADMIT Internal Medicine; ATTEND Internal Medicine
DX: E10.43 Type 1 diabetes mellitus with diabetic autonomic (poly)neuropathy (principal); N17.0 Acute kidney failure with tubular necrosis; K92.0 Hematemesis; R65.10 Systemic inflammatory response syndrome (SIRS) of non-infectious origin without acute organ dysfunction; E86.0 Dehydration; K31.84 Gastroparesis; I10 Essential (primary) hypertension; J45.909 Unspecified asthma, uncomplicated; R00.0 Tachycardia, unspecified; Z79.4 Long term (current) use of insulin; Z79.899 Other long term (current) drug therapy; E10.65 Type 1 diabetes mellitus with hyperglycemia; I16.0 Hypertensive urgency
CPT/HCPCS: 36415; 71045; 74177; 80048; 80053; 80305; 80320; 81003; 82962; 83036; 83605; 83880; 84484; 85025; 86850; 86900; 93005; 99291; C9113; J0360; J1815; J2270; J2405; J2765; J3490; J7030; J7040; Q9967; G0480

== ENCOUNTER 2021-06-04 12:26 | Inpatient (IN) | payer MEDICAID, OTHER ==
[~2021-06-04] VITALS: Ht 177.8 cm; Wt 81.0 kg
[~2021-06-04 12:26] MED LIST changes: -AMLO10TA80 PO; +NIFE-32 PO
[2021-06-04] MEDS ORDERED: SODIUM CHLORIDE 0.9% 1,000 ML IV ONE ×2 (13:45→22:45)
[2021-06-04] MEDS ORDERED: METOCLOPRAMIDE HCL 10MG/2ML VIAL IV STA (14:12)
[2021-06-04] MEDS ORDERED: PANTOPRAZOLE SODIUM 40 MG/VIAL IV STA (14:12)
[2021-06-04 14:17] LABS: HEMATOCRIT. 44.6 % (42.0-52.0); HEMOGLOBIN. 14.6 g/dL (14.0-18.0); MEAN CORPUSCULAR HEMOGLOBIN 28.5 pg (28.0-32.0); MEAN PLATELET VOLUME 9.9 fl (7.4-10.4); PLATELET 283 x1000/uL (130-400); RED BLOOD CELL COUNT 5.12 mill/uL (4.7-6.1); RED CELL DISTRIBUTION WIDTH 12.9 % (11.6-14.6)
[2021-06-04 14:26] LABS: CHLORIDE 109 mEq/L (98-107)
[2021-06-04 14:29] LABS: ETHANOL BLOOD < 10 mg/dL
[2021-06-04 15:02] LABS: PLATELET ESTIMATE NORMAL
[2021-06-04] MEDS: PANTOPRAZOLE SODIUM 40 MG/VIAL IV NR ×2 (15:22→17:53)
[2021-06-04] MEDS ORDERED: ONDANSETRON HCL 4MG/2ML INJ IV ONE ×2 (17:45→20:30)
[2021-06-04] MEDS ORDERED: MORPHINE SULFATE 4 MG/ML CPJ (NOT FOR IM USE) IV ONE (20:30)
[2021-06-04] MEDS ORDERED: CEFTRIAXONE 1 G PREMIX 50 ML IV ONE (22:30)
[2021-06-05] MEDS ORDERED: NALOXONE HCL 0.4MG/ML VIAL IV PRN (01:00)
[2021-06-05] MEDS ORDERED: SODIUM CHLORIDE 0.9% 1,000 ML IV SCH (01:30)
[2021-06-05 01:55] VITALS: BP 168/98
[2021-06-05] MEDS: HYDROCODONE/ACETAMINOPHEN 5/325MG TABLET PO PRN (02:33)
[2021-06-05] MEDS: ONDANSETRON HCL 4MG/2ML INJ IV PRN ×4 (02:34→23:39)
[2021-06-05] MEDS ORDERED: HYDRALAZINE 10 MG in SODIUM CHLORIDE 0.9% 49.5 ML IV PRN (05:15)
[2021-06-05] MEDS ORDERED: HYDRALAZINE 20MG/ML VIAL IV PRN (05:15)
[2021-06-05 06:57] LABS: CHLORIDE 109 mEq/L (98-107)
[2021-06-05 07:01] LABS: AMYLASE 153 IU/L (25-115)
[2021-06-05 07:14] LABS: BASOPHILS % 0.3 % (0.0-2.0); EOSINOPHILS % 0.1 % (0.0-5.0); HEMATOCRIT. 38.8 % (42.0-52.0); HEMOGLOBIN. 13.4 g/dL (14.0-18.0); LYMPHOCYTES % 11.1 % (20.0-50.0); MEAN CORPUSCULAR HEMOGLOBIN 29.7 pg (28.0-32.0); MEAN CORPUSCULAR VOLUME 86.4 fL (80.0-94.0); MEAN PLATELET VOLUME 9.4 fl (7.4-10.4); MONOCYTES % 5.4 % (2.0-8.0); NEUTROPHILS % 83.1 % (40.0-76.0); PLATELET 267 x1000/uL (130-400); RED BLOOD CELL COUNT 4.49 mill/uL (4.7-6.1)
[2021-06-05] MEDS: AMLODIPINE 10MG TABLET PO SCH (07:53)
[2021-06-05 08:00] VITALS: BP 168/95
[2021-06-05] MEDS ORDERED: DEXTROSE 50% WATER 50ML SYRINGE IV PRN (08:00)
[2021-06-05] MEDS: INSULIN LISPRO 100 UNITS/ML SUBCUT SCH ×4 (08:53→20:10)
[2021-06-05] MEDS ORDERED: METOPROLOL SUCCINATE 50MG ER TABLET PO SCH (09:00)
[2021-06-05 11:00] VITALS: BP 184/112
[2021-06-05 12:00] VITALS: BP 164/89
[2021-06-05] MEDS ORDERED: METOCLOPRAMIDE HCL 10MG/2ML VIAL IV SCH (12:00)
[2021-06-05] MEDS: BLOOD SUGAR DIAGNOSTIC STRIP TEST SCH ×3 (12:20→20:05)
[2021-06-05] MEDS: METOPROLOL TARTRATE 50MG TABLET PO SCH ×3 (15:15→20:05)
[2021-06-05] MEDS: PANTOPRAZOLE 40MG DR TABLET PO SCH ×2 (15:15→15:57)
[2021-06-05] MEDS: SODIUM CHLORIDE 0.45% 1,000 ML IV SCH (15:17)
[2021-06-05] MEDS ORDERED: ACETAMINOPHEN 650MG/20.3ML UDC PO PRN (15:45)
[2021-06-05 16:00] VITALS: BP 169/109
[2021-06-05] MEDS ORDERED: MORPHINE SULFATE 2 MG/ML CPJ (NOT FOR IM USE) IV NR (19:49)
[2021-06-05 20:00] VITALS: BP 171/110
[2021-06-05] MEDS: HYDRALAZINE 20MG/ML VIAL IV PRN (20:09)
[2021-06-05] MEDS: PIPERACILLIN/TAZOBACTAM 3.375 G in DEXTROSE 5% WATER 50 ML IV SCH (21:46)
[2021-06-05] MEDS: METOCLOPRAMIDE HCL 10MG/2ML VIAL IV SCH (23:39)
[2021-06-06 04:00] VITALS: BP 152/101
[2021-06-06] MEDS ORDERED: MORPHINE SULFATE 2 MG/ML CPJ (NOT FOR IM USE) IV NR ×2 (04:00→21:30)
[2021-06-06] MEDS: ONDANSETRON HCL 4MG/2ML INJ IV PRN ×3 (04:03→21:12)
[2021-06-06] MEDS: PIPERACILLIN/TAZOBACTAM 3.375 G in DEXTROSE 5% WATER 50 ML IV SCH ×3 (05:57→22:00)
[2021-06-06] MEDS: PANTOPRAZOLE 40MG DR TABLET PO SCH ×2 (05:57→16:40)
[2021-06-06] MEDS: BLOOD SUGAR DIAGNOSTIC STRIP TEST SCH ×4 (05:57→21:54)
[2021-06-06] MEDS: METOCLOPRAMIDE HCL 10MG/2ML VIAL IV SCH ×3 (05:57→18:00)
[2021-06-06] MEDS: SODIUM CHLORIDE 0.45% 1,000 ML IV SCH ×3 (05:58→21:59)
[2021-06-06] MEDS: INSULIN LISPRO 100 UNITS/ML SUBCUT SCH ×3 (06:43→22:03)
[2021-06-06] MEDS: METOPROLOL TARTRATE 50MG TABLET PO SCH ×2 (09:00→21:00)
[2021-06-06] MEDS: AMLODIPINE 10MG TABLET PO SCH (09:00)
[2021-06-06] MEDS: INSULIN GLARGINE UD 100 UNITS/ML SYR SUBCUT SCH ×2 (11:26→22:03)
[2021-06-06 16:00] VITALS: BP 176/108
[2021-06-06 20:00] VITALS: BP 173/101
[2021-06-07] VITALS: BP 169/100
[2021-06-07] MEDS: HYDRALAZINE 20MG/ML VIAL IV PRN (00:16)
[2021-06-07] MEDS: METOCLOPRAMIDE HCL 10MG/2ML VIAL IV SCH ×4 (00:52→17:44)
[2021-06-07 04:00] VITALS: BP 178/107
[2021-06-07] MEDS ORDERED: HYDRALAZINE 20MG/ML VIAL IV PRN (06:00)
[2021-06-07] MEDS: PIPERACILLIN/TAZOBACTAM 3.375 G in DEXTROSE 5% WATER 50 ML IV SCH ×3 (06:00→21:10)
[2021-06-07] MEDS: BLOOD SUGAR DIAGNOSTIC STRIP TEST SCH ×4 (06:38→21:10)
[2021-06-07] MEDS: INSULIN LISPRO 100 UNITS/ML SUBCUT SCH ×7 (06:38→21:00)
[2021-06-07] MEDS: SODIUM CHLORIDE 0.45% 1,000 ML IV SCH ×2 (06:45→17:07)
[2021-06-07 08:00] VITALS: BP 156/110
[2021-06-07] MEDS: PANTOPRAZOLE SODIUM 40 MG/VIAL IV SCH (08:38)
[2021-06-07] MEDS: METOPROLOL TARTRATE 50MG TABLET PO SCH ×2 (08:38→08:45)
[2021-06-07] MEDS: AMLODIPINE 10MG TABLET PO SCH ×2 (08:41→08:46)
[2021-06-07] MEDS ORDERED: LABETALOL 5MG/ML SYR 20 MG/4 ML SYRINGE IV PRN (09:30)
[2021-06-07] MEDS: KETOROLAC 30MG/ML VIAL IV PRN ×3 (10:02→21:30)
[2021-06-07] MEDS ORDERED: INSULIN GLARGINE UD 100 UNITS/ML SYR SUBCUT NR (11:30)
[2021-06-07 12:00] VITALS: BP 131/62
[2021-06-07] MEDS ORDERED: MORPHINE SULFATE 2 MG/ML CPJ (NOT FOR IM USE) IV PRN (13:30)
[2021-06-07] MEDS: ONDANSETRON HCL 4MG/2ML INJ IV PRN ×2 (15:44→21:25)
[2021-06-07 20:00] VITALS: BP 141/92
[2021-06-07] MEDS: HYDROCODONE/ACETAMINOPHEN 5/325MG TABLET PO PRN (21:14)
[2021-06-07] MEDS ORDERED: INSULIN GLARGINE UD 100 UNITS/ML SYR SUBCUT SCH (22:00)
[2021-06-08] MEDS: METOCLOPRAMIDE HCL 10MG/2ML VIAL IV SCH ×3 (00:57→12:07)
[2021-06-08] MEDS: KETOROLAC 30MG/ML VIAL IV PRN (03:55)
[2021-06-08 04:00] VITALS: BP 156/96
[2021-06-08] MEDS: SODIUM CHLORIDE 0.45% 1,000 ML IV SCH (05:36)
[2021-06-08] MEDS: PIPERACILLIN/TAZOBACTAM 3.375 G in DEXTROSE 5% WATER 50 ML IV SCH (05:43)
[2021-06-08] MEDS: INSULIN LISPRO 100 UNITS/ML SUBCUT SCH ×3 (06:40→12:10)
[2021-06-08] MEDS: BLOOD SUGAR DIAGNOSTIC STRIP TEST SCH ×2 (06:51→11:57)
[2021-06-08 08:00] VITALS: BP 141/79
[2021-06-08] MEDS: AMLODIPINE 10MG TABLET PO SCH (09:12)
[2021-06-08] MEDS: METOPROLOL TARTRATE 50MG TABLET PO SCH (09:12)
[2021-06-08] MEDS: PANTOPRAZOLE SODIUM 40 MG/VIAL IV SCH (09:12)
[2021-06-08 12:14] VITALS: BP 141/79
[2021-06-08] MEDS ORDERED: INSULIN GLARGINE UD 100 UNITS/ML SYR SUBCUT SCH (13:00)
== END 2021-06-08 12:34 | disposition home or self-care (01) | DRG 243 ==
LOC: ER 12:26 → 6EST 20:40 → ENRESERV 21:29 → 7EST 06-05 14:35
PROVIDERS: ADMIT Internal Medicine; ATTEND Internal Medicine
DX: K20.91 Esophagitis, unspecified with bleeding (principal); N17.0 Acute kidney failure with tubular necrosis; E11.43 Type 2 diabetes mellitus with diabetic autonomic (poly)neuropathy; K31.84 Gastroparesis; E87.8 Other disorders of electrolyte and fluid balance, not elsewhere classified; D72.825 Bandemia; F12.90 Cannabis use, unspecified, uncomplicated; I10 Essential (primary) hypertension; J45.909 Unspecified asthma, uncomplicated; Z79.899 Other long term (current) drug therapy
CPT/HCPCS: 36415; 71045; 74176; 80048; 80053; 80076; 80320; 82150; 82962; 83036; 83605; 85025; 86850; 86900; 93005; 99285; C1893; C9113; J0360; J0696; J1815; J1885; J2270; J2405; J2543; J2765; J7030; J7060; G0480

== ENCOUNTER 2022-08-03 10:47 | Inpatient (IN) | payer MEDICAID, OTHER ==
[~2022-08-03] VITALS: Ht 182.9 cm; Wt 75.1 kg
[~2022-08-03 10:47] MED LIST changes: -AMLO10TA80 MT; +INSU100I28 SQ
[2022-08-03] MEDS ORDERED: PANTOPRAZOLE SODIUM 40 MG/VIAL IV STA (11:18)
[2022-08-03] MEDS ORDERED: LABETALOL HCL VIAL 20 MG/4 ML VIAL IV ONE (11:30)
[2022-08-03] MEDS ORDERED: PROCHLORPERAZINE 10MG/2ML VIAL IV PRN (11:30)
[2022-08-03] MEDS ORDERED: DIPHENHYDRAMINE 50MG/ML VIAL IV ONE (11:30)
[2022-08-03] MEDS ORDERED: SODIUM CHLORIDE 0.9% 1,000 ML IV ONE (11:30)
[2022-08-03] MEDS ORDERED: LABETALOL 5MG/ML SYR 20 MG/4 ML SYRINGE IV NR (12:00)
[2022-08-03 12:37] LABS: CHLORIDE 106 mEq/L (98-107)
[2022-08-03 12:39] LABS: BASOPHILS % 0.7 % (0.0-2.0); EOSINOPHILS % 0.6 % (0.0-5.0); HEMATOCRIT. 47.4 % (42.0-52.0); HEMOGLOBIN. 15.6 g/dL (14.0-18.0); LYMPHOCYTES % 13.9 % (20.0-50.0); MEAN CORPUSCULAR HEMOGLOBIN 28.3 pg (28.0-32.0); MEAN CORPUSCULAR VOLUME 85.9 fL (80.0-94.0); MEAN PLATELET VOLUME 9.5 fl (7.4-10.4); MONOCYTES % 2.8 % (2.0-8.0); PLATELET 373 x1000/uL (130-400); RED BLOOD CELL COUNT 5.52 mill/uL (4.7-6.1); RED CELL DISTRIBUTION WIDTH 13.4 % (11.6-14.6)
[2022-08-03 12:45] LABS: BETA HYDROXYBUTYRATE 1.1 mMol/L (0.0-0.3); ETHANOL BLOOD < 10 mg/dL
[2022-08-03] MEDS ORDERED: HYDRALAZINE 20MG/ML VIAL IV NR (13:00)
[2022-08-03] MEDS ORDERED: LABETALOL 5MG/ML SYR 20 MG/4 ML SYRINGE IV ONE (14:15)
[2022-08-03] MEDS ORDERED: ONDANSETRON HCL 4MG/2ML INJ IV ONE (15:00)
[2022-08-03] MEDS ORDERED: KETOROLAC 30MG/ML VIAL IV ONE (15:00)
[2022-08-03 15:32] LABS: PROTHROMBIN TIME 10.9 sec (9.6-11.0)
[2022-08-03] MEDS: CLONIDINE 0.2MG TABLET PO PRN (19:51)
[2022-08-03] MEDS ORDERED: NITROGLYCERIN 50MG PREMIX 250 ML IV PRN (21:15)
[2022-08-04 05:40] LABS: CLARITY URINE CLEAR (CLEAR); COLOR URINE YELLOW (YELLOW); KETONES URINE 2+ (NEGATIVE); LEUKOCYTE ESTERASE URINE NEGATIVE (NEGATIVE); NITRITE URINE NEGATIVE (NEGATIVE); OCCULT BLOOD URINE 1+ (NEGATIVE); PROTEIN URINE 4+ (NEGATIVE); SPECIFIC GRAVITY URINE 1.031 (1.005-1.030); UROBILINOGEN URINE 0.2 E.U./dL (0.2-1.0)
[2022-08-04 05:58] LABS: *AMPHETAMINES SCREEN URINE PRESUMTIVE POSITIVE (NEGATIVE); *BARBITURATES SCREEN URINE NEGATIVE (NEGATIVE); *BENZODIAZEPINES SCREEN URINE NEGATIVE (NEGATIVE); *COCAINE SCREEN URINE PRESUMTIVE POSITIVE (NEGATIVE); CANNABINOID URINE SCREEN PRESUMTIVE POSITIVE (NEGATIVE); METHADONE URINE SCREEN NEGATIVE (NEGATIVE); OPIATES URINE SCREEN NEGATIVE (NEGATIVE); PHENCYCLIDINE URINE SCREEN NEGATIVE (NEGATIVE)
[2022-08-04] MEDS ORDERED: DEXTROSE 50% WATER 50ML SYRINGE IV PRN (09:15)
[2022-08-04] MEDS ORDERED: ACETAMINOPHEN 325MG TABLET PO PRN (09:15)
[2022-08-04] MEDS ORDERED: ONDANSETRON HCL 4MG/2ML INJ IV PRN (09:15)
[2022-08-04] MEDS ORDERED: LABETALOL 5MG/ML SYR 20 MG/4 ML SYRINGE IV NR (11:00)
[2022-08-04] MEDS: BLOOD SUGAR DIAGNOSTIC STRIP TEST SCH ×3 (11:55→21:24)
[2022-08-04] MEDS: METOCLOPRAMIDE HCL 10MG/2ML VIAL IV SCH ×3 (12:16→23:36)
[2022-08-04] MEDS: DILTIAZEM HCL 60MG TABLET PO SCH ×2 (12:16→23:37)
[2022-08-04] MEDS: INSULIN LISPRO 100 UNITS/ML SUBCUT SCH ×3 (12:23→22:02)
[2022-08-04] MEDS ORDERED: INSULIN GLARGINE 100 UNITS/ML SUBCUT NR (12:30)
[2022-08-04] MEDS ORDERED: INSULIN LISPRO 100 UNITS/ML SUBCUT NR (12:30)
[2022-08-04] MEDS ORDERED: METOPROLOL TARTRATE 5MG/5ML VIAL IV SCH (14:30)
[2022-08-04 15:41] LABS: CHLORIDE 105 mEq/L (98-107)
[2022-08-04] MEDS ORDERED: MORPHINE SULFATE 2 MG/ML CPJ (NOT FOR IM USE) IV NR (21:00)
[2022-08-04] MEDS: ONDANSETRON HCL 4MG/2ML INJ IV PRN (21:24)
[2022-08-04 23:10] VITALS: BP 207/133
[2022-08-04] MEDS: CLONIDINE 0.2MG TABLET PO PRN (23:37)
[2022-08-04] MEDS: INSULIN GLARGINE 100 UNITS/ML SUBCUT SCH (23:38)
[2022-08-05] VITALS (7 sets, daily range): BP systolic 124–193; BP diastolic 70–113
[2022-08-05] MEDS: HYDRALAZINE 20MG/ML VIAL IV PRN ×2 (00:08→06:52)
[2022-08-05] MEDS ORDERED: LABETALOL 5MG/ML SYR 20 MG/4 ML SYRINGE IV NR (00:45)
[2022-08-05] MEDS ORDERED: MORPHINE SULFATE 2 MG/ML CPJ (NOT FOR IM USE) IV NR (00:45)
[2022-08-05] MEDS ORDERED: LORAZEPAM 2MG/ML CPJ IV NR (00:45)
[2022-08-05] MEDS: ONDANSETRON HCL 4MG/2ML INJ IV PRN (01:01)
[2022-08-05] MEDS: METOCLOPRAMIDE HCL 10MG/2ML VIAL IV SCH ×3 (05:40→17:41)
[2022-08-05] MEDS: DILTIAZEM HCL 60MG TABLET PO SCH ×6 (05:41→18:00)
[2022-08-05] MEDS: BLOOD SUGAR DIAGNOSTIC STRIP TEST SCH ×4 (06:43→20:50)
[2022-08-05] MEDS: INSULIN LISPRO 100 UNITS/ML SUBCUT SCH ×6 (08:14→20:50)
[2022-08-05] MEDS ORDERED: ENALAPRIL 2.5MG/2ML VIAL 2ML IV NR (10:30)
[2022-08-05] MEDS: INSULIN GLARGINE 100 UNITS/ML SUBCUT SCH ×2 (10:49→20:50)
[2022-08-05] MEDS ORDERED: LABETALOL 5MG/ML SYR 20 MG/4 ML SYRINGE IV PRN (14:00)
[2022-08-05] MEDS ORDERED: LABETALOL 5MG/ML SYR 20 MG/4 ML SYRINGE IV SCH (14:00)
[2022-08-05] MEDS: LABETALOL 5MG/ML SYR 20 MG/4 ML SYRINGE IV SCH ×2 (14:32→20:45)
[2022-08-06] MEDS: METOCLOPRAMIDE HCL 10MG/2ML VIAL IV SCH ×5 (00:06→23:37)
[2022-08-06] MEDS: HYDRALAZINE 20MG/ML VIAL IV PRN (00:06)
[2022-08-06] MEDS: DILTIAZEM HCL 60MG TABLET PO SCH ×5 (00:07→23:37)
[2022-08-06] MEDS: LABETALOL 5MG/ML SYR 20 MG/4 ML SYRINGE IV SCH ×4 (03:03→20:47)
[2022-08-06 03:54] VITALS: BP 150/99
[2022-08-06] MEDS ORDERED: MORPHINE SULFATE 2 MG/ML CPJ (NOT FOR IM USE) IV NR (04:45)
[2022-08-06] MEDS: BLOOD SUGAR DIAGNOSTIC STRIP TEST SCH ×4 (05:16→20:19)
[2022-08-06] MEDS: INSULIN LISPRO 100 UNITS/ML SUBCUT SCH ×7 (05:19→20:54)
[2022-08-06 09:00] VITALS: BP 163/106
[2022-08-06] MEDS: INSULIN GLARGINE 100 UNITS/ML SUBCUT SCH ×2 (10:57→20:55)
[2022-08-06] MEDS: SODIUM CHLORIDE 0.45% 1,000 ML IV SCH (12:36)
[2022-08-06 16:00] VITALS: BP 192/125
[2022-08-06 20:00] VITALS: BP 162/107
[2022-08-06] MEDS: HYDRALAZINE 20MG/ML VIAL IV SCH (20:47)
[2022-08-06] MEDS ORDERED: DIPHENHYDRAMINE 50MG/ML VIAL IV PRN (23:45)
[2022-08-07] VITALS: BP 111/79
[2022-08-07] MEDS: SODIUM CHLORIDE 0.45% 1,000 ML IV SCH (00:36)
[2022-08-07] MEDS: LABETALOL 5MG/ML SYR 20 MG/4 ML SYRINGE IV SCH ×2 (02:03→09:45)
[2022-08-07] MEDS: HYDRALAZINE 20MG/ML VIAL IV SCH ×2 (02:16→09:46)
[2022-08-07 04:00] VITALS: BP 120/72
[2022-08-07] MEDS: DILTIAZEM HCL 60MG TABLET PO SCH ×2 (06:00→12:00)
[2022-08-07] MEDS: METOCLOPRAMIDE HCL 10MG/2ML VIAL IV SCH (06:19)
[2022-08-07] MEDS: BLOOD SUGAR DIAGNOSTIC STRIP TEST SCH ×2 (06:45→12:01)
[2022-08-07] MEDS: INSULIN LISPRO 100 UNITS/ML SUBCUT SCH ×4 (06:45→12:34)
[2022-08-07 08:00] VITALS: BP 111/81
[2022-08-07] MEDS: INSULIN GLARGINE 100 UNITS/ML SUBCUT SCH (09:46)
[2022-08-07 12:00] VITALS: BP 110/76
[2022-08-07] MEDS ORDERED: METOCLOPRAMIDE HCL 10MG/2ML VIAL IV SCH (12:00)
[2022-08-07 13:28] VITALS: BP 110/76
== END 2022-08-07 15:10 | disposition home or self-care (01) | DRG 199 ==
LOC: ER 11:14 → EDBEDREQ 15:09 → EDBEDREQTM 15:09 → MICUSO 16:00 → EDBEDREQSVC 08-04 17:20 → 7WST 08-04 23:17
PROVIDERS: ADMIT Internal Medicine; ATTEND Internal Medicine
DX: I16.1 Hypertensive emergency (principal); N17.0 Acute kidney failure with tubular necrosis; E43 Unspecified severe protein-calorie malnutrition; F12.90 Cannabis use, unspecified, uncomplicated; K31.84 Gastroparesis; E10.43 Type 1 diabetes mellitus with diabetic autonomic (poly)neuropathy; E10.22 Type 1 diabetes mellitus with diabetic chronic kidney disease; I10 Essential (primary) hypertension; J45.909 Unspecified asthma, uncomplicated; I12.9 Hypertensive chronic kidney disease with stage 1 through stage 4 chronic kidney disease, or unspecified chronic kidney disease; N18.9 Chronic kidney disease, unspecified; F19.10 Other psychoactive substance abuse, uncomplicated; Z91.14 Patient's other noncompliance with medication regimen; Z79.899 Other long term (current) drug therapy; Z68.22 Body mass index [BMI] 22.0-22.9, adult
CPT/HCPCS: 36415; 74176; 78265; 80048; 80053; 80305; 80320; 81003; 82010; 82962; 83605; 83880; 84484; 85025; 93005; 99291; C9113; J0360; J1200; J1815; J1885; J2060; J2270; J2405; J2765; J3490; J7030; G0480

== ENCOUNTER 2023-08-20 19:34 | Emergency (ER) | payer OTHER ==
[~2023-08-20] VITALS: Ht 172.7 cm; Wt 80.0 kg
[~2023-08-20 19:34] MED LIST changes: +B50 PO; +BLOO-1657 TP; +CLON0.1T MT; -FAMO-123 PO; +FAMO-135 MT; -INSLIS SUBCUT; +INSU100I32 SUBCUT; +LISI40TA20 MT; -METO-293 MT; +MINO2.5T2 MT; -ONDA4TAB11 PO; +P20 MT; -TRAM-529 PO; +[UNRECOGNIZED DRUG - CODE] SQ
[2023-08-20 19:42] VITALS: BP 132/76; PULSE 90; RESP 18; TEMP 98.3; O2SAT 99
[2023-08-20 23:37] LABS: BASOPHILS % 0.9 % (0.0-2.0); EOSINOPHILS % 4.6 % (0.0-5.0); HEMATOCRIT. 29.4 % (42.0-52.0); HEMOGLOBIN. 9.8 g/dL (14.0-18.0); LYMPHOCYTES % 23.2 % (20.0-50.0); MEAN CORPUSCULAR HEMOGLOBIN 28.9 pg (28.0-32.0); MEAN CORPUSCULAR HGB CONC 33.2 g/dL (31.0-37.0); MEAN CORPUSCULAR VOLUME 87.2 fL (80.0-94.0); MEAN PLATELET VOLUME 8.2 fl (7.4-10.4); MONOCYTES % 7.4 % (2.0-8.0); NEUTROPHILS % 63.9 % (40.0-76.0); PLATELET 198 x1000/uL (130-400); RED BLOOD CELL COUNT 3.37 mill/uL (4.7-6.1); RED CELL DISTRIBUTION WIDTH 15.1 % (11.6-14.6); WHITE BLOOD COUNT 6.2 x1000/uL (4.5-11.0)
[2023-08-20 23:43] LABS: ALANINE AMINOTRANSFERASE 10 IU/L (10-49); ALBUMIN 3.3 g/dL (3.2-4.8); ASPARTATE AMINOTRANSFERASE 22 IU/L (<34); BILIRUBIN TOTAL 0.3 mg/dL (0.1-1.0); CARBON DIOXIDE 28 mEq/L (21-32); CHLORIDE 104 mEq/L (98-107); POTASSIUM 3.4 mEq/L (3.5-5.1); PROTEIN TOTAL 6.1 g/dL (6.0-8.3); SODIUM 139 mEq/L (136-145); UREA NITROGEN BLOOD 11 mg/dL (9-23)
[2023-08-20 23:52] LABS: GLUCOSE 44 mg/dL (70-105)
== END 2023-08-20 23:50 | disposition left against medical advice (07) ==
LOC: ER 19:34
DX: E11.649 Type 2 diabetes mellitus with hypoglycemia without coma (principal); F14.10 Cocaine abuse, uncomplicated; Z88.8 Allergy status to other drugs, medicaments and biological substances; Z79.899 Other long term (current) drug therapy; Z79.4 Long term (current) use of insulin
CPT/HCPCS: 36415; 80053; 85025; 99283

== ENCOUNTER 2023-08-22 13:52 | Emergency (ER) | payer OTHER ==
[~2023-08-22] VITALS: Ht 172.7 cm; Wt 80.0 kg
[2023-08-22 13:53] VITALS: O2SAT 98
[2023-08-22 14:53] VITALS: BP 185/75; PULSE 75; RESP 16; TEMP 98.7
[2023-08-22] MEDS: DEXTROSE 50% WATER 50ML SYRINGE IV ONE (15:37)
== END 2023-08-22 16:56 | disposition left against medical advice (07) ==
LOC: ER 13:52 → CANBEDREQ 16:00 → ER 16:56
DX: E11.9 Type 2 diabetes mellitus without complications (principal); I12.0 Hypertensive chronic kidney disease with stage 5 chronic kidney disease or end stage renal disease; N18.6 End stage renal disease; F14.90 Cocaine use, unspecified, uncomplicated; Z88.8 Allergy status to other drugs, medicaments and biological substances; Z99.2 Dependence on renal dialysis
CPT/HCPCS: 82962; 93005; 99284; Z7610; 80305

== ENCOUNTER 2023-09-30 17:27 | Emergency (ER) | payer OTHER ==
[~2023-09-30] VITALS: Ht 177.8 cm; Wt 88.0 kg
[2023-09-30 17:28] VITALS: BP 194/90; PULSE 90; RESP 19; TEMP 98; O2SAT 99
== END 2023-09-30 17:56 | disposition left against medical advice (07) ==
LOC: ER 17:27
DX: E11.649 Type 2 diabetes mellitus with hypoglycemia without coma (principal); I10 Essential (primary) hypertension; Z88.8 Allergy status to other drugs, medicaments and biological substances; Z79.899 Other long term (current) drug therapy; Z79.4 Long term (current) use of insulin; Z98.890 Other specified postprocedural states
CPT/HCPCS: 82962; 93005; 99283